=== PATIENT | female | born 1990 | race Caucasian/White ===

== ENCOUNTER 2019-06-26 06:10 | Inpatient (IN) | payer BC ==
--- NOTE | 2019-06-23 08:57 | PREOPHP ---
Date of Admission: 06/26/2019 History Of Present Illness: This is a -fsbg-ipd 3, para 1, AB 1, for repeat shayna an section on Wednesday. She will be 39 weeks 2 days. Infection; blood loss; anesthetic complications; injury to bladder, bowel, ureter; postoperative complications; clots in legs; and pneumonia russell causey Patient knows fully well this does not constitute all the possible problems that could occur duri ng or following surgery. Family History: Several grandparents with hypertension, paternal grandfather with pancreatic cancer, paternal grandmother with diabetes, paternal grandfather with diabetes. Past Medical History: Patient had been diagnosed with mitral valve prolapse, completely asymptomatic . Has been tested positive for herpes and is on acyclovir, no outbreaks at this time. Past Surgical History: She has had a previous and her wisdom teeth removed. Medications: She has been on vitamins. Social History: Does not smoke. Physical Examination: HEENT: Clear. Pupils are equal, round, reactive to light and accommodation. Conjunctivae well perf used. No oral, lingual, or buccal lesions. Chest and Lungs: Clear. Heart: Without murmurs, thrills, heaves, or rubs. Breasts: Without masses on previous visits. Abdomen: Term size. Baby is vertex. Extremities: Clear. Pelvic: Cervix is fingertip and baby is still floating. Assessment And Plan: We will proceed with repeat section on Wednesday. She knows that if she goes in labor over the weekend, I will be out of town and Dr. Núñez will take care of her. NESS/THOMAS Voice ID: [id number]
[2019-06-25 14:40] LABS: Absolute Lymphocytes (CBC) 1.2 K/uL (0.7-4.9); Basophils % 0.7 % (0-1.3); Hematocrit 37.9 % (36.0-45.0); Lymphocytes % 15.4 % (15.3-44.8); MPV 8.9 fL (7.6-11.3); RBC Red Blood Cell Count 4.19 M/uL (3.86-4.86)
[2019-06-25 14:43] LABS: Protime INR 0.95
[2019-06-25 14:44] LABS: Urine Appearance CLEAR; Urine Bilirubin NEGATIVE (NEG); Urine Blood NEGATIVE (NEG); Urine Color YELLOW; Urine Glucose NEGATIVE (NEG); Urine Microscopic Reflex NO UMIC; Urine Protein NEGATIVE (NEG); Urine Specific Gravity <=1.005 (1.005-1.030); Urine Urobilinogen 0.2 mg/dL (0.2-1.0); Urine pH 6.5 (5.0-7.0)
[2019-06-25 21:15] LABS: RPR (Rapid Plasma Reagin) NON-REACT (NON-REACT)
[~2019-06-26 06:10] MED LIST: FAMOTIDINE 20 MG/2 ML VIAL IV ONE; METOCLOPRAMIDE 10 MG/2mL INJ IV ONE; NA CIT/CITRIC AC 30 ML ORAL UDC PO ONE; Ringers Lactate 1,000 ML IV PRN; Ringers Lactate 1,000 ML IV SCH
--- OUTSIDE RECORDS SUMMARY | 2019-06-26 06:12 | XMS REPORT ---
:1990 Author Organization [facility] Address [address] [place] [id number] Care Team Providers Name Role Phone Unavailable Unavailable Unavailable Problems This patient has no known problems. Allergies, Adverse Reactions, Alerts This patient has no known allergies or adverse reactions. Medications This patient has no known medications.
[2019-06-26 06:21] VITALS: BMI 35.0
[2019-06-26] MEDS ORDERED: CEFAZOLIN 2 GM in NA CHLORIDE 0.9% 100 ML IVPB SCH (06:30)
[2019-06-26] MEDS ORDERED: CEFAZOLIN/SWI 2gm 2 GM/20 ML SYR IVP SCH (06:30)
[2019-06-26] MEDS ORDERED: MORPHINE SULFATE/PF 1 MG/ML (10 ML AMP) ONE (06:48)
[2019-06-26] MEDS ORDERED: EPHEDRINE SULF 50 MG/ML VIAL ONE (06:48)
[2019-06-26] MEDS ORDERED: FENTANYL CITR 250 MCG/5 ML ONE (06:48)
[2019-06-26] MEDS ORDERED: Phenylephrine HCl 10 MG/ML 1 ML VIAL ONE (06:48)
[2019-06-26] MEDS ORDERED: NS 0.9% VIAL 20 ML ONE (06:49)
[2019-06-26] MEDS ORDERED: OXYTOCIN 10 UNIT/ML ML IV ONE (06:49)
[2019-06-26] MEDS ORDERED: BUPIVACAINE 0.75% (PF) 2 ML SP ONE (06:54)
[2019-06-26] MEDS ORDERED: METHYLERGONOVINE 0.2MG/ML AMP IM ONE (06:58)
[2019-06-26] MEDS ORDERED: CARBOPROST TROME 250 MCG/ML IM ONE (06:58)
[2019-06-26] MEDS ORDERED: INFLUENZA VACCINE (for 3y+) 0.5 ML DOSE IMVAC ONE (08:00)
[2019-06-26] MEDS ORDERED: DIPHENHYDRAMINE 25 MG TAB/CAP PO PRN (08:38)
[2019-06-26] MEDS ORDERED: KETOROLAC 30 MG/ML INJ IV PRN (08:38)
[2019-06-26] MEDS ORDERED: ACETAMINOPHEN 500 MG TAB PO PRN ×2 (08:38)
[2019-06-26] MEDS ORDERED: Oxycodone HCl/Acetaminophen 1 TAB TAB PO PRN (08:38)
[2019-06-26] MEDS ORDERED: KETOROLAC 30 MG/ML INJ IM PRN (08:38)
[2019-06-26] MEDS ORDERED: BISACODYL 10 MG RECTAL SUPP RECT PRN (08:38)
[2019-06-26] MEDS ORDERED: ONDANSETRON 4 MG (ODT) TAB PO PRN (08:38)
[2019-06-26] MEDS ORDERED: ONDANSETRON 4 MG/2 ML VIAL IV PRN (08:38)
[2019-06-26] MEDS ORDERED: OXYTOCIN/LR 20 UNIT/1,000 ML BAG IV SCH (09:00)
[2019-06-26] MEDS: D5LR 1,000 ML with OXYTOCIN 20 UNIT IV SCH ×2 (12:53)
[2019-06-26] MEDS ORDERED: CEFAZOLIN/SWI 1gm 1 GM/10 ML SYR IV SCH (15:00)
[2019-06-26] MEDS ORDERED: CEFAZOLIN 2 GM in NA CHLORIDE 0.9% 100 ML IVPB ONE (16:00)
[2019-06-26] MEDS ORDERED: CEFAZOLIN/SWI 2gm 2 GM/20 ML SYR IV ONE (16:15)
[2019-06-26] MEDS ORDERED: Ringers Lactate 2,000 ML IV ONE (18:24)
--- NOTE | 2019-06-26 19:16 | OP ---
Surgeon: Malcolm Stewart MD Associate Director Finance: Dr. Núñez. Description Of Procedure: A 28-year-old 3, para 1, 39 weeks 3 days for repeat secti on. Infection, blood loss, anesthetic complications, injury to bladder, bowel, ureter, postoperative complications were discussed. Patient knows fully well, this does not constitute all the possible p roblems that could occur during or following surgery. Spinal block anesthesia. After prepping and d raping, time-out was performed. A Pfannenstiel incision was created over the previous incision site. The incision was carried to the fascia. The fascia was incised and incision was carried transverse ly bilaterally. Anterior and posterior fascial plane were developed with both blunt and sharp dissec tion. Underlying peritoneum was entered and extended. Low transverse uterine incision was created. An 8 pound 5 ounces male infant was delivered, Apgars 8 and 9. Loose nuchal cord. Cord blood obtai nicholas. Placenta was removed manually. Uterus cleared of clot and blood and exteriorized. Cervical os dilated with ring clamp. All membranes were removed. Urine remained clear throughout the procedure . The uterus closed with a running locked stitch of 1 chromic followed by imbricating stitch of 1 ch romic as well. Estimated blood loss 900 cc or less. Gutters cleared of clot and blood. Uterus was replaced in the peritoneal cavity. Inspection of suture line showed no further bleeding. The muscle s were reapproximated using 0 Vicryl interrupted sutures x3. The fascia was closed with 1 Vicryl run sharon from either angle to the midline. Subcutaneous tissues closed with 2-0 plain. Absorbable stapl es and then metal kaylynn. Patient had been given 2 g of Ancef. She tolerated all procedures well a nd transferred back to her room in good condition. Final Diagnoses: 1.Repeat section. 2.Spinal block anesthesia. NESS/THOMAS Voice ID: [id number] Report ID: [id number]
[2019-06-27] MEDS: D5LR 1,000 ML with OXYTOCIN 20 UNIT IV SCH ×2 (04:30)
[2019-06-27] MEDS ORDERED: MAGNESIUM HYDROXIDE 8% 30 ML PO PRN (08:38)
--- NOTE | 2019-06-27 10:26 | PN ---
Postoperatively, the patient has done quite well. H and H with expected change. Lochia is normal. Vital signs are all stable. She has already had a standing session beside the bed. We will disconti nue Terrell and IV and let her ambulate the halls. Start p.o. intake. The patient had 1 dose of Torad ol. Otherwise, no analgesics thus far. Full postoperative talk. Full post dismissal talk as well. If all continues well, we will dismiss her tomorrow. She is Rh positive, immune to Rubella. She beard s had her Tdap immunization. No complaints or problems this morning. NESS/THOMAS Voice ID: [id number] Report ID: [id number]
[2019-06-27] MEDS: IBUPROFEN 600 MG TAB PO PRN (14:30)
[2019-06-28] MEDS: IBUPROFEN 600 MG TAB PO PRN (03:00)
[2019-06-28] MEDS ORDERED: MAGNESIUM HYDROXIDE 8% 30 ML PO ONE (07:14)
[2019-06-28 07:57] VITALS: BP 124/71; TEMP 97.8
[2019-06-28] MEDS ORDERED: INFLUENZA VACCINE (for 3y+) 0.5 ML DOSE IMVAC ONE (08:54)
--- NOTE | 2019-06-28 21:45 | DS ---
Date of Discharge: 06/28/2019 A 28-year-old 2, para 1, 39 weeks 3 days, underwent repeat section with delivery of an 8-pound 5-ounce male , Apgars 8 and 9. Spinal block anesthesia. 900 mL or less blood loss. Low transverse uterine incision. Ancef for prophylaxis. ; afebrile, ambulating and void ing. Lochia is normal. She has significant gas from probably mild ileus. We are giving her a bowel stimulant. She has also been offered suppository and even small fleets enema. If this has not wayne red by tomorrow she will call Labor and Delivery and we will give her GoLYTELY, which is a purgative. Dismissed with tramadol for analgesia, to call my office today, to see me Wednesday for followup over the holidays. If any problems, she will call Labor and Delivery. She has had her Tdap immunization. She has no post spinal block problems. Final Diagnoses: Term intrauterine . Repeat section. Spinal block anesthesia. M ild postop ileus with gas discomfort. NBC/LEXL Voice ID: [id number] Report ID: [id number]
[2019-06-30 05:50] LABS: HBsAG Nonreactive (Nonreactive)
== END 2019-06-28 11:30 | disposition home or self-care (01) | DRG 787 ==
LOC: 2ND-WC 06:10
PROVIDERS: ADMIT Specialist; ATTEND Specialist
PROC: 10D00Z1 Extraction of Products of Conception, Low, Open Approach (ICD-10-PCS; principal; 2019-06-26 07:30)
DX: O34.211 Maternal care for low transverse scar from previous cesarean delivery (principal); O98.32 Other infections with a predominantly sexual mode of transmission complicating childbirth; K56.7 Ileus, unspecified; O69.81X0 Labor and delivery complicated by cord around neck, without compression, not applicable or unspecified; A60.00 Herpesviral infection of urogenital system, unspecified; O99.62 Diseases of the digestive system complicating childbirth; Z3A.39 39 weeks gestation of pregnancy; Z37.0 Single live birth; Z23 Encounter for immunization; Z79.899 Other long term (current) drug therapy
CPT/HCPCS: 36415; 81003; 85014; 85025; 85610; 85730; 86592; 86850; 86900; 86901; 87340; 88307; 90471; J0690; J2210; J2370; J2405; J2590; J2765; J3010; J7120; Q2035